=== PATIENT | female | born 1950 | race Caucasian/White ===

== ENCOUNTER 2018-09-27 12:14 | Emergency (ER) | payer MEDICARE, BC ==
[~2018-09-27] VITALS: Ht 157.5 cm; Wt 61.0 kg
[~2018-09-27 12:14] MED LIST: RIVA20TA PO
--- NOTE | 2018-09-27 12:35 | NUR ---
PT IS 67 YO FEMALE C/O "FAST HEART RATE" SINCE 1114, PT SAID SHE HAS HAD FAST HEART OFF AND ON SINCE SHE WAS 42YO AND IS USUALLY ABLE TO CONVERT HERSELF, SEEN AT [facility] LAST MONTH AND "I WAS SHOCKED...I DON'T WANT THAT TO HAPPEN AGAIN", PT IS [facility] 15, ALERT AND ORIENTED, RESP EVEN AND UNLABORED, SKIN P/W/D,
--- NOTE | 2018-09-27 12:41 | NUR ---
PT NOW C/O CHEST "TIGHTNESS" RADIATING TO THROAT, +DIZZINESS, DR OLIVER AT BEDSIDE
[2018-09-27] MEDS ORDERED: LANS30CA37 PO (12:50)
[2018-09-27] MEDS ORDERED: FLEC100T2 PO (12:50)
[2018-09-27] MEDS ORDERED: FISH12002 PO (12:50)
[2018-09-27] MEDS ORDERED: RED600TA PO (12:50)
[2018-09-27] MEDS ORDERED: APIX5TAB3 PO (12:50)
[2018-09-27 12:51] LABS: BASOPHILS # (AUTO) 0.1 X10'3 (0-0.2); BASOPHILS % (AUTO) 1.3 % (0-1); EOSINOPHILS # (AUTO) 0.1 X10'3 (0-0.9); EOSINOPHILS % (AUTO) 0.9 % (0-6); HEMOGLOBIN 14.4 g/dl (12.0-16.0); LYMPHOCYTES % (AUTO) 44.9 % (21-51); MEAN CORPUSCULAR HEMOGLOBIN 30.7 PG (27.0-31.0); MEAN CORPUSCULAR HGB CONC 33.4 g/dL (33.0-36.5); MEAN CORPUSCULAR VOLUME 91.9 FL (78-98); MEAN PLATELET VOLUME 8.1 FL (7.4-10.4); MONOCYTES # (AUTO) 0.9 X10'3 (0-0.9); MONOCYTES % (AUTO) 7.9 % (2-12); PLATELET COUNT 346 X10'3 (140-440); RED BLOOD COUNT 4.68 X10'6 (4.20-5.60); RED CELL DISTRIBUTION WIDTH 13.8 % (11.5-14.5); WHITE BLOOD COUNT 11.1 X10'3 (4.5-11.0)
[2018-09-27] MEDS ORDERED: diltiazem-D5W 125mg/125ml 125 ML IV ONE (12:51)
[2018-09-27] MEDS ORDERED: diltiazem 5mg/ml 5ml inj. IV ONE ×2 (12:55→13:25)
[2018-09-27 13:07] LABS: ALANINE AMINOTRANSFERASE 26 U/L (12-78); ALBUMIN 3.8 G/DL (3.4-5.0); ALBUMIN/GLOBULIN RATIO 1.1 (1.1-1.5); ALKALINE PHOSPHATASE 119 IU/L (46-116); ANION GAP 14 (8-16); ASPARTATE AMINO TRANSFERASE 19 U/L (10-37); BILIRUBIN,TOTAL 0.2 MG/DL (0.1-1.0); BLOOD UREA NITROGEN 11 MG/DL (7-18); BUN/CREATININE RATIO 13.6 (6.6-38.0); CALCIUM 9.2 MG/DL (8.5-10.1); CHLORIDE 104 MMOL/L (99-107); CREATININE 0.81 MG/DL (0.40-0.90); GLUCOSE 114 MG/DL (70-104); SODIUM 138 MMOL/L (135-145); TOTAL CARBON DIOXIDE 20.1 MMOL/L (24-32); TOTAL PROTEIN 7.2 G/DL (6.4-8.2); eGFR 71 ML/MIN
[2018-09-27 13:12] LABS: POTASSIUM 3.6 MMOL/L (3.5-5.1)
[2018-09-27 13:13] LABS: MAGNESIUM 1.9 MG/DL (1.5-2.4)
[2018-09-27 13:15] LABS: INR 0.9 INR; PARTIAL THROMBOPLASTIN TIME 32 SECONDS (22-32)
--- NOTE | 2018-09-27 13:27 | NUR ---
CARDIZEM GTT STARTED AT 5MG/HR, PT CONTINUES TO REST QUIETLY ON FAMILY YADIEL AT BEDSIDE
[2018-09-27 13:51] VITALS: BP 98/53
--- NOTE | 2018-09-27 14:00 | NUR ---
PT'S HEART RATE IN THE 60S AFTER 2ND DOSE OF CARDIZEM, HAD 2ND EKG DONE, RESTING QUIETLY ON GURNEY, RESP EVEN AND UNLABORED
--- NOTE | 2018-09-27 14:11 | NUR ---
Dr Sethi at bedside to evaluate pt, gave verbal order to stop cardizem gtt
--- NOTE | 2018-09-27 14:15 | NUR ---
ASSISTED DR OLIVER WITH RECTAL EXAMINE, HEMOCULT (POSITIVE)
== END 2018-09-27 14:37 | disposition home or self-care (01) ==
LOC: ER 12:14
DX: I48.0 Paroxysmal atrial fibrillation (principal); E78.00 Pure hypercholesterolemia, unspecified; F17.200 Nicotine dependence, unspecified, uncomplicated; Z90.710 Acquired absence of both cervix and uterus; Z88.1 Allergy status to other antibiotic agents; Z79.899 Other long term (current) drug therapy
CPT/HCPCS: 36415; 71045; 80053; 83735; 83880; 84484; 85025; 85610; 85730; 93005; 96365; 96376; 99284; J3490

== ENCOUNTER 2018-11-01 10:59 | Emergency (ER) | payer MEDICARE, BC ==
[~2018-11-01] VITALS: Ht 160 cm; Wt 58.2 kg
[~2018-11-01 10:59] MED LIST changes: +APIX5TAB3 PO; +FISH12002 PO; +FLEC100T2 PO; +LANS30CA37 PO; +RED600TA PO; -RIVA20TA PO
[2018-11-01] MEDS ORDERED: diltiazem 5mg/ml 5ml inj. IV ONE ×2 (11:25→11:55)
[2018-11-01 11:38] LABS: BASOPHILS # (AUTO) 0.1 X10'3 (0-0.2); BASOPHILS % (AUTO) 1.1 % (0-1); EOSINOPHILS # (AUTO) 0.1 X10'3 (0-0.9); HEMATOCRIT 43.1 % (35.0-45.0); HEMOGLOBIN 14.5 g/dl (12.0-16.0); LYMPHOCYTES # (AUTO) 3.9 X10'3 (1.1-4.8); LYMPHOCYTES % (AUTO) 37.5 % (21-51); MEAN CORPUSCULAR HEMOGLOBIN 31.1 PG (27.0-31.0); MEAN CORPUSCULAR HGB CONC 33.7 g/dL (33.0-36.5); MEAN CORPUSCULAR VOLUME 92.2 FL (78-98); MEAN PLATELET VOLUME 7.7 FL (7.4-10.4); MONOCYTES # (AUTO) 0.7 X10'3 (0-0.9); MONOCYTES % (AUTO) 6.8 % (2-12); NEUTROPHILS # (AUTO) 5.6 X10'3 (1.8-7.7); NEUTROPHILS % (AUTO) 53.6 % (42-75); PLATELET COUNT 342 X10'3 (140-440); RED BLOOD COUNT 4.68 X10'6 (4.20-5.60); RED CELL DISTRIBUTION WIDTH 13.6 % (11.5-14.5); WHITE BLOOD COUNT 10.5 X10'3 (4.5-11.0)
[2018-11-01 11:45] LABS: PARTIAL THROMBOPLASTIN TIME 32 SECONDS (22-32)
[2018-11-01 11:50] LABS: ALANINE AMINOTRANSFERASE 28 U/L (12-78); ALBUMIN 3.9 G/DL (3.4-5.0); ALKALINE PHOSPHATASE 119 IU/L (46-116); ANION GAP 12 (8-16); ASPARTATE AMINO TRANSFERASE 17 U/L (10-37); BILIRUBIN,TOTAL 0.2 MG/DL (0.1-1.0); BLOOD UREA NITROGEN 11 MG/DL (7-18); BUN/CREATININE RATIO 13.1 (6.6-38.0); CALCIUM 9.3 MG/DL (8.5-10.1); CHLORIDE 105 MMOL/L (99-107); CREATININE 0.84 MG/DL (0.40-0.90); GLUCOSE 100 MG/DL (70-104); PHOSPHORUS 3.6 MG/DL (2.3-4.5); POTASSIUM 3.3 MMOL/L (3.5-5.1); SODIUM 142 MMOL/L (135-145); TOTAL CARBON DIOXIDE 25.4 MMOL/L (24-32); TOTAL PROTEIN 7.7 G/DL (6.4-8.2); eGFR 68 ML/MIN
[2018-11-01] MEDS ORDERED: potassium Cl 20 mEq SR tablet PO STA (11:54)
[2018-11-01] MEDS ORDERED: normal saline 1000ml 1,000 ML IV ONE (12:00)
[2018-11-01 12:35] VITALS: BP 97/55
== END 2018-11-01 12:36 | disposition home or self-care (01) ==
LOC: ER 10:59
DX: I48.91 Unspecified atrial fibrillation (principal); E78.00 Pure hypercholesterolemia, unspecified; F17.200 Nicotine dependence, unspecified, uncomplicated; Z88.8 Allergy status to other drugs, medicaments and biological substances; Z79.899 Other long term (current) drug therapy
CPT/HCPCS: 36415; 71045; 80053; 83735; 84100; 84484; 85025; 85610; 85730; 93005; 96374; 99284; J7030; J3490